=== PATIENT | male | born 1975 | race Two or more races ===

== ENCOUNTER → 2020-01-28 09:15 | Outpatient (CLI) | payer OTHER ==
[~2020-01-28 09:15] MED LIST: NABUMETONE750 MG PO
== END | disposition home or self-care (01) ==
LOC: LAB 09:15
DX: N40.0 Benign prostatic hyperplasia without lower urinary tract symptoms (principal); E78.2 Mixed hyperlipidemia; R73.09 Other abnormal glucose; Z00.00 Encounter for general adult medical examination without abnormal findings

== ENCOUNTER 2021-01-25 09:33 | Outpatient (CLI) | payer OTHER | END 2021-01-25 09:35 | disposition home or self-care (01) | LOC: LAB 09:33 | DX: Z00.01 Encounter for general adult medical examination with abnormal findings (principal) ==

== ENCOUNTER 2021-12-29 09:02 | Outpatient (CLI) | payer OTHER | END 2021-12-29 09:08 | disposition home or self-care (01) | LOC: LAB 09:02 | DX: E78.5 Hyperlipidemia, unspecified (principal); I10 Essential (primary) hypertension ==

== ENCOUNTER 2023-06-13 09:32 | Outpatient (CLI) | payer OTHER ==
[2023-06-13 10:23] LABS: URINE APPEARANCE Clear; URINE BILIRRUBIN Negative (NEGATIVE); URINE BLOOD Small; URINE COLOR Yellow; URINE GLUCOSE Negative (NEGATIVE); URINE LEUKOCYTE Negative; URINE NITRATE Negative; URINE PROTEIN Negative (NEGATIVE)
[2023-06-13 10:28] LABS: URINE BACTERIA 3.7 uL (0.0-1933); URINE RBC 75.1 uL (0.0-20.8); URINE WBC 2.7 uL (0.0-23.2)
[2023-06-13 10:35] LABS: HEMATOCRIT 42.6 % (39.0-48.0); HEMOGLOBIN 14.8 g/dL (13-16.00); MEAN CELL VOLUME 88.8 fL (80.0-100.00); MEAN CORPUSCULAR HEMOGLOBIN 30.9 pg (27.00-32.0); MEAN CORPUSCULAR HGB CONC 34.8 g/dl (32.0-36.0); PLATELET COUNT 307 K/uL (150-450); RED CELL DISTRIBUTION WIDTH 13.1 % (11.5-14.5)
[2023-06-13 11:07] LABS: ALBUMIN 3.6 gm/dL (3.4-5.0); BILIRUBIN TOTAL 0.51 mg/dL (0.3-1.2); CALCIUM 9.2 mg/dL (8.5-10.1); CHOL HDL RATIO 5.8 (0-5.0); CREATININE SERUM 0.83 mg/dL (0.70-1.30); GFR 99.74; GLOBULINA 3.7 G/DL (2.4-3.5); POTASSIUM 4.02 mEq/L (3.5-5.1); T4 FREE 0.99 NG/ML (0.76-1.46); TOTAL PROTEIN 7.3 gm/dL (6.4-8.2); TSH 1.04 uIU/mL (0.358-3.74)
[2023-06-13 11:30] LABS: VITAMIN D3 25 HYDROXY 20.55 ng/ml (30-120)
== END 2023-06-13 09:33 | disposition home or self-care (01) ==
LOC: LAB 09:32
PROVIDERS: ATTEND Internal Medicine
DX: I10 Essential (primary) hypertension (principal); E78.5 Hyperlipidemia, unspecified; E55.9 Vitamin D deficiency, unspecified